=== PATIENT | female | born 1965 | race Caucasian/White ===

== ENCOUNTER → 2021-08-14 | Outpatient (CLI) | payer OTHER ==
--- NOTE | 2021-08-14 12:36 | Diagnostic Imaging Report ---
INDICATION: Low back pain. TIME OF EXAM: 11:29 AM FINDINGS: 3 views lumbar spine demonstrate normal curvature and alignment. There is a superior endplate compression fracture of L2 vertebral body, age indeterminate. No definite retropulsion is seen. There is degenerative disc disease at the L1-L2 level with disc space narrowing and marginal spurring. A screw transfixes the right SI joint. IMPRESSION: 1. Postop changes right SI joint. 2. Age-indeterminate superior endplate compression fracture of L2. If there is concern for acuity, then MRI could be performed for further evaluation. Dictated by: Dictated on workstation # [id number]
== END ==
LOC: RAD FS 11:05
PROVIDERS: ATTEND Nurse Practitioner
DX: M48.56XA Collapsed vertebra, not elsewhere classified, lumbar region, initial encounter for fracture (principal); Z98.890 Other specified postprocedural states
CPT/HCPCS: 72100